=== PATIENT | male | born 1960 | race African-American/Black ===

== ENCOUNTER 2022-12-12 05:32 | Emergency (ER) | payer SELFPAY ==
[~2022-12-12] VITALS: Ht 167.6 cm; Wt 78.9 kg
[2022-12-12 06:32] VITALS: BP 152/89; PULSE 71; TEMP 97.9
[2022-12-12] MEDS ORDERED: ALBUTEROL SULF 2.5 MG/0.5ML(0.5%) NEB SOLN NEB ONE (06:45)
[2022-12-12] MEDS ORDERED: methylPREDNISolone SOD SUCC 40 MG/ML VL IM ONE (06:45)
[2022-12-12] MEDS ORDERED: IPRATROPIUM BROM 0.5 MG/2.5ML INH SOL NEB ONE ×2 (06:45→06:55)
[2022-12-12 07:00] VITALS: RESP 16; O2SAT 98
[2022-12-12] MEDS ORDERED: methylPREDNISolone SOD SUCC 125 MG/2 ML VL IM ONE (07:00)
[2022-12-12] MEDS ORDERED: METH4PAK PO (07:49)
[2022-12-12] MEDS ORDERED: ALBU108A5 IN (07:49)
== END 2022-12-12 07:52 | disposition home or self-care (01) ==
LOC: ER 05:32
DX: J98.01 Acute bronchospasm (principal)
CPT/HCPCS: 71046; 94640; 99283; J2930; J7644